=== PATIENT | male | born 1945 | race Caucasian/White ===

== ENCOUNTER 2017-07-05 16:26 | Emergency (ER) | payer OTHER ==
[2017-07-05 18:44] LABS: BASOPHILS 0.1 % (0-2); EOSINOPHILS 0.7 % (0-7); IMMATURE GRANULOCYTES 0.3 % (0-5); LYMPHOCYTES 28.2 % (15-50); MCH 30.8 pg (26.0-34.0); MCHC 33.3 g/dL (31.0-37.0); MCV 92.5 fL (80.0-100.0); MEAN PLATELET VOLUME 10.4 fL (7.4-10.4); MONOCYTES 7.6 % (2-11); NEUTROPHILS 63.1 % (40-80); PLATELET COUNT 177 10x3/uL (130-400); RBC 3.89 10x6/uL (4.20-6.10); RDW 15.2 % (11.5-14.5); WBC 6.7 10x3/uL (4.8-10.8)
[2017-07-05 18:59] LABS: ALBUMIN 4.2 g/dL (3.4-5.0); ANION GAP 20.1 mmol/L (8-16); BILIRUBIN - TOTAL 0.99 mg/dL (0.2-1.3); CALCIUM 9.1 mg/dL (8.5-10.1); CARBON DIOXIDE 16.8 mmol/L (21.0-32.0); CREATININE - SERUM 3.4 mg/dL (0.6-1.3); POTASSIUM - SERUM 5.9 mmol/L (3.5-5.1); PROTEIN - SERUM 7.7 g/dL (6.4-8.2)
== END 2017-07-05 23:03 | disposition short-term general hospital (02) ==
LOC: D.ER 16:26
PROVIDERS: Physician Assistant
DX: E87.5 Hyperkalemia (principal); I12.9 Hypertensive chronic kidney disease with stage 1 through stage 4 chronic kidney disease, or unspecified chronic kidney disease; N18.9 Chronic kidney disease, unspecified; Z87.09 Personal history of other diseases of the respiratory system; Z86.79 Personal history of other diseases of the circulatory system; R10.84 Generalized abdominal pain; Z95.0 Presence of cardiac pacemaker

== ENCOUNTER 2020-06-09 14:26 | Inpatient (IN) | payer OTHER ==
[~2020-06-09] VITALS: Ht 167.6 cm; Wt 99.8 kg
[2020-06-09] MEDS ORDERED: LISINOPRIL5 MG (15:11)
[2020-06-09] MEDS ORDERED: GOUT MED (15:12)
[2020-06-09] MEDS ORDERED: [UNRECOGNIZED DRUG - REMARK] (15:12)
[2020-06-09 15:59] LABS: BASOPHILS 0.1 % (0-2); EOSINOPHILS 0.4 % (0-7); HEMATOCRIT 33.7 % (42.0-54.0); IMMATURE GRANULOCYTES 0.1 % (0-5); LYMPHOCYTES 18.7 % (15-50); MCH 31.2 pg (26.0-34.0); MCHC 32.6 g/dL (31.0-37.0); MCV 95.5 fL (80.0-100.0); MEAN PLATELET VOLUME 11.4 fL (7.4-10.4); MONOCYTES 6.7 % (2-11); PLATELET COUNT 169 10x3/uL (130-400); RBC 3.53 10x6/uL (4.20-6.10); RDW 14.4 % (11.5-14.5); WBC 9.6 10x3/uL (4.8-10.8)
[2020-06-09 16:07] LABS: INR 1.17 (0.85-1.17); PROTIME 14.8 SECONDS (11.6-15.0)
[2020-06-09 16:08] LABS: APTT 35.2 SECONDS (22.8-39.4)
[2020-06-09 16:30] LABS: ALBUMIN 4.3 g/dL (3.4-5.0); ALKALINE PHOSPHATASE 105 U/L (30-120); BILIRUBIN - TOTAL 0.19 mg/dL (0.2-1.3); CHLORIDE - SERUM 102 mmol/L (98-107); CREATINE KINASE 478 UL (21-232); CREATININE - SERUM 8.9 mg/dL (0.6-1.3); PROTEIN - SERUM 7.3 g/dL (6.4-8.2); SODIUM 135 mmol/L (136-145); TROPONIN-I 0.029 ng/mL (0.000-0.060); eGFR NON AFRICAN AMERICAN 6 mL/min (90-120)
[2020-06-09 17:00] VITALS: BP 104/42
[2020-06-09 17:01] LABS: GLUCOSE 44 mg/dL (74-106)
[2020-06-09 17:02] LABS: ALT (SGPT) 15 U/L (10-68); CALC OSMOLALITY 331 mosm/kg (275-300); CALCIUM 5.9 mg/dL (8.5-10.1); POTASSIUM - SERUM 7.5 mmol/L (3.5-5.1); UREA NITROGEN 195 mg/dL (7-18)
[2020-06-09 17:23] LABS: BILIRUBIN NEGATIVE (NEGATIVE); KETONE NEGATIVE (NEGATIVE); NITRITE NEGATIVE (NEGATIVE); UROBILINOGEN NORMAL mg/dL (< 2)
--- NOTE | 2020-06-09 17:45 | NUR ---
PER Guanako CAIN., PATIENT TOO UNSTABLE FOR V/Q SCAN AT THIS TIME. WILL RE-ORDER IF NEEDED AND PATIENT BECOMES MORE STABLE.
[2020-06-09 18:00] VITALS: BP 108/75
--- NOTE | 2020-06-09 18:00 | NUR ---
1800 DR. LIMA AT BEDSIDE FOR DIALYSIS CATH PLACEMENT, CONSENTS SIGNED UNABLE TO OBTAIN IJ ACCESS. CATHETER PLACED RT FEMORAL, BIOPATCH PLACED, DRESSING APPLIED. PT TOLERATED FAIR.
[2020-06-09 19:00] VITALS: BP 124/61
[2020-06-09 20:00] VITALS: BP 112/56
[2020-06-09 21:00] VITALS: BP 172/81
--- NOTE | 2020-06-09 21:29 | NUR ---
DIALYSIS NURSE HERE TO DO DIALYSIS.
[2020-06-09 22:00] VITALS: BP 134/94
[2020-06-10] VITALS (10 sets, daily range): BP systolic 92–131; BP diastolic 50–65
[2020-06-10 07:57] LABS: BASOPHILS 0.2 % (0-2); EOSINOPHILS 0.3 % (0-7); HEMOGLOBIN 8.8 g/dL (13.5-17.5); IMMATURE GRANULOCYTES 0.3 % (0-5); LYMPHOCYTES 19.6 % (15-50); MCH 30.9 pg (26.0-34.0); MEAN PLATELET VOLUME 11.6 fL (7.4-10.4); MONOCYTES 10.3 % (2-11); NEUTROPHILS 69.3 % (40-80); PLATELET COUNT 170 10x3/uL (130-400); RBC 2.85 10x6/uL (4.20-6.10); RDW 14.2 % (11.5-14.5)
[2020-06-10 07:58] LABS: HEMATOCRIT 25.9 % (42.0-54.0); MCV 90.9 fL (80.0-100.0); WBC 6.2 10x3/uL (4.8-10.8)
[2020-06-10 08:03] LABS: INR 1.15 (0.85-1.17); PROTIME 14.6 SECONDS (11.6-15.0)
[2020-06-10 08:21] LABS: ALBUMIN 3.5 g/dL (3.4-5.0); BILIRUBIN - TOTAL 0.28 mg/dL (0.2-1.3); PHOSPHOROUS 6.2 mg/dL (2.5-4.9); PROTEIN - SERUM 6.5 g/dL (6.4-8.2)
[2020-06-10 08:29] LABS: ANION GAP 22.4 mmol/L (8-16); CARBON DIOXIDE 17.1 mmol/L (21.0-32.0); CREATININE - SERUM 4.8 mg/dL (0.6-1.3); POTASSIUM - SERUM 3.5 mmol/L (3.5-5.1)
[2020-06-10 08:35] LABS: CALCIUM 6.2 mg/dL (8.5-10.1); MAGNESIUM - SERUM 0.9 mg/dL (1.8-2.4)
[2020-06-10 08:41] LABS: TROPONIN-I 0.033 ng/mL (0.000-0.060)
--- NOTE | 2020-06-10 09:26 | NUR ---
PATIENT RECEIVED FROM [employer] CEMENT SHEET SUPERVISOR. PATIENT WITH RIGHT FEMORAL TRIALYSIS CATH INTACT. FINGERSTICK BLOOD SUGAR 179 AND INSULIN GIVEN ORDERED. D5W AT 100ML/HR IN RIGHT FOREARM.
--- NOTE | 2020-06-10 11:18 | NUR ---
MENDOZA AVINA AT BEDSIDE. AT BEDSIDE, STATES DOES NOT WANT PT TRANSFERRED TO [facility], "I WILL TAKE HIM HOME FIRST" PATIENT RESTING QUIETLY WITHOUT C/O VOICED. NRIGHT AC IV SITE WITH REDNESS, IV REMOVED WITH CATH INTACT, 20 GAUGE INSERTED IN RIGHT HAND X1 ATTEMPT
[2020-06-11] VITALS (7 sets, daily range): BP systolic 97–175; BP diastolic 45–67; Ht 167.6 cm; Wt 99.8 kg
[2020-06-11] MEDS ORDERED: IPRAT-ALBUT 0.5-3 ML UPD (00:04)
[2020-06-11] MEDS ORDERED: COMBIVENT RESPIM4 GM INH (00:05)
[2020-06-11] MEDS ORDERED: ALBUTEROL SULF8.5 GM INH (00:06)
[2020-06-11] MEDS ORDERED: SYMBICORT 16010.2 GM INH (00:07)
[2020-06-11] MEDS ORDERED: LIPITOR10 MG PO (00:17)
[2020-06-11] MEDS ORDERED: BUMEX2 MG PO (00:18)
[2020-06-11] MEDS ORDERED: OMEPRAZOLE20 M1 PO (00:19)
[2020-06-11] MEDS ORDERED: COREG25 MG PO (00:19)
[2020-06-11] MEDS ORDERED: GAS-X125 M1 PO (00:21)
[2020-06-11] MEDS ORDERED: ASPIRIN81 MG PO (00:22)
[2020-06-11] MEDS ORDERED: ZANAFLEX2 M1 PO (00:22)
[2020-06-11 05:55] LABS: BASOPHILS 0.2 % (0-2); EOSINOPHILS 0.9 % (0-7); HEMATOCRIT 27.4 % (42.0-54.0); HEMOGLOBIN 9.1 g/dL (13.5-17.5); LYMPHOCYTES 23.8 % (15-50); MCH 30.2 pg (26.0-34.0); MCHC 33.2 g/dL (31.0-37.0); MEAN PLATELET VOLUME 11.5 fL (7.4-10.4); MONOCYTES 12.8 % (2-11); NEUTROPHILS 62.3 % (40-80); RBC 3.01 10x6/uL (4.20-6.10); RDW 14.1 % (11.5-14.5); WBC 5.6 10x3/uL (4.8-10.8)
[2020-06-11 06:02] LABS: PLATELET COUNT 135 10x3/uL (130-400)
[2020-06-11 06:04] LABS: INR 1.15 (0.85-1.17); PROTIME 14.6 SECONDS (11.6-15.0)
[2020-06-11 06:24] LABS: PHOSPHOROUS 5.3 mg/dL (2.5-4.9); POTASSIUM - SERUM 3.3 mmol/L (3.5-5.1)
[2020-06-11 06:30] LABS: ANION GAP 16.3 mmol/L (8-16); CREATININE - SERUM 2.9 mg/dL (0.6-1.3)
[2020-06-11 06:32] LABS: CALCIUM 6.4 mg/dL (8.5-10.1)
--- NOTE | 2020-06-11 08:27 | MORECARE ---
CASE MANAGEMENT DISCHARGE SUMMARY PATIENT: ELIANA RUFF UNIT: [id number] ADM DATE: 06/09/20 AGE: 75 : 45 SEX: M ROOM/BED: D.0 AUTHOR: TOREY SPICER PHYSICIAN: REFERRING PHYSICIAN: LAY ROSARIO MD DATE OF SERVICE: 06/11/20 Discharge Plan Patient Name: [facility]INAA RUFF [facility] [facility] 1945 Planned Disposition: Anticipated Discharge Date: Discharge Date: Expected LOS: Initial Reviewer: [email or web address] Initial Review Date: 06/11/2020 Generated: 06/11/20 9:26 am DCP- Discharge Planning Updated by [email or web address]: Glo Lawrence on 06/10/20 3:[address] 1600 CM called [place] expeditor at [phone] and spoke with Natalia about transfer status. Natalia stated she was too busy to provide that information at this moment. Stated she will call CM back in 15 min. CM will await call back. Glo WANG,RN,CM DCP- Discharge Planning Updated by [email or web address]: Glo Lawrence on 06/10/20 3:[address] 0850 [facility] at [phone] and spoke with Manuela about [facility] the [facility] the [facility]. Kamila stated she will send to the [facility] to review. Glo WANG,RN,CM Patient Name: ELIANA RUFF Page [id number] at 0827 All edits/amendments must be made on the electronic document DICTATION DATE: 06/11/20825 BED AND BREAKFAST INNKEEPER: PAVAN 06/11/20825 RPT#: [id number] DC DATE: STATUS: ADM IN [facility] [address] [place] [address] END OF REPORT
--- NOTE | 2020-06-11 14:20 | NUR ---
PT CURRENTLY LYING SEMI FOWLERS. CALL LIGHT W/I REACH. RESTING WITH EYES CLOSED AT THIS TIME. FALL PRECAUTIONS IN PLACE. PREVIOUS PIV'S INFILTRATED. REMOVED ALL THREE WITH ALL THREE CATHETER TIPS FULLY INTACT. ATTEMPTED TO INITIATE NEW PERIPHERAL ACCESS BUT WAS UNSUCCESSFUL R/T VALVULAR ISSUES. MAGNESIUM INFUSIONS COMPLETE. NO S/S OF DISTRESS NOTED. ESCALANTE CATHETER IN PLACE. WAS AT BEDSIDE APPROX 30 MIN THIS AM BUT LEFT. PT DENIES ANY NEEDS AT THIS TIME. WILL CTM.
--- NOTE | 2020-06-11 15:41 | NUR ---
DURING THE TIME OF THE 'S VISIT, INSTRUCTOR AND 3 NURSING STUDENTS IN THE ROOM AT THE TIME OF ATTEMPTING A NEW PIV. THE NOR THE PATIENT DID NOT VOISE ANY CONCERNS OR QUESTIONS. PT AT THIS TIME DENIES ANY NEEDS OR DOES NOT HAVE ANY CONCERNS OR QUESTIONS. NEW CVL DRESSING PLACE TO RIGHT GROIN TRIALYSIS CATHETER PER PROTOCOL. WILL CTM.
--- NOTE | 2020-06-11 19:26 | NUR ---
RECIEVED UP IN BED WITH EYES OPEN AND TV ON. ALERT AND ORIENTED X4. UP AD KAREN TO B/R. TRIALYSIS TO LEFT GROIN WITH PLASMOLYTE INFUSING AT 75CC/HR. DENIES ANY NEEDS.
[2020-06-12] VITALS: BP 108/58
[2020-06-12 04:00] VITALS: BP 128/63
[2020-06-12 06:07] LABS: BASOPHILS 0.1 % (0-2); EOSINOPHILS 1.1 % (0-7); HEMATOCRIT 27.4 % (42.0-54.0); HEMOGLOBIN 9.2 g/dL (13.5-17.5); IMMATURE GRANULOCYTES 0.1 % (0-5); LYMPHOCYTES 17.5 % (15-50); MCH 30.9 pg (26.0-34.0); MCHC 33.6 g/dL (31.0-37.0); MCV 91.9 fL (80.0-100.0); MONOCYTES 10.5 % (2-11); NEUTROPHILS 70.7 % (40-80); PLATELET COUNT 140 10x3/uL (130-400); RBC 2.98 10x6/uL (4.20-6.10); RDW 13.9 % (11.5-14.5); WBC 7.4 10x3/uL (4.8-10.8)
[2020-06-12 06:23] LABS: ANION GAP 14.2 mmol/L (8-16); CARBON DIOXIDE 27.1 mmol/L (21.0-32.0); POTASSIUM - SERUM 3.3 mmol/L (3.5-5.1)
[2020-06-12 06:23] LABS: INR 1.11 (0.85-1.17); PROTIME 14.3 SECONDS (11.6-15.0)
[2020-06-12 06:31] LABS: CREATININE - SERUM 1.9 mg/dL (0.6-1.3); MAGNESIUM - SERUM 1.9 mg/dL (1.8-2.4); PHOSPHOROUS 3.3 mg/dL (2.5-4.9)
[2020-06-12 06:32] LABS: CALCIUM 6.5 mg/dL (8.5-10.1)
[2020-06-12 07:42] VITALS: BP 125/68
--- NOTE | 2020-06-12 10:45 | NUR ---
TRIALYSIS CATH REMOVED REMOVED PER DRS ORDERED, PRESSER HELD FOR 10 MINUTES. DRESSING APPLED, NO BLEEDING NOTED.
--- NOTE | 2020-06-12 11:00 | NUR ---
CALLED TO ROOM PER AND GOWN WITH LARGE AMOUNT OF BLOOD ON IT AND MASSIVE BLOOD TO BED AROUND GROIN WITH CLOTS NOTED, PRESSURE APPLIED WITH 4X4S FOR APPROX 15-20 MINUTES AND BLEEDING STOPPED. PRESSURE DRESSING APPLIED.
--- NOTE | 2020-06-12 12:00 | NUR ---
NO BLEEDING NOTED THROUGH DRESSING.
[2020-06-12 14:21] VITALS: BP 103/58
--- NOTE | 2020-06-12 16:08 | NUR ---
patient unable to urinate since small removed this morning, bladder scan showing greater than 500. order received to in and out cath. 550 out.
[2020-06-12 16:16] VITALS: BP 116/74
--- NOTE | 2020-06-12 19:15 | NUR ---
RECIEVED UP IN BED WITH EYES OPEN AND TV ON. ALERT AND ORIETNED X4. UP AD KAREN TO B/R. IV TO LT FA SL. DENIES ANY NEEDS AT THIS TIME.
[2020-06-12 20:00] VITALS: BP 107/48
[2020-06-13 04:00] VITALS: BP 142/65
[2020-06-13 05:45] LABS: BASOPHILS 0.2 % (0-2); EOSINOPHILS 2.1 % (0-7); HEMATOCRIT 25.1 % (42.0-54.0); HEMOGLOBIN 8.2 g/dL (13.5-17.5); IMMATURE GRANULOCYTES 0.3 % (0-5); LYMPHOCYTES 26.6 % (15-50); MCH 30.4 pg (26.0-34.0); MCHC 32.7 g/dL (31.0-37.0); MEAN PLATELET VOLUME 11.2 fL (7.4-10.4); MONOCYTES 10.6 % (2-11); NEUTROPHILS 60.2 % (40-80); PLATELET COUNT 146 10x3/uL (130-400); WBC 5.8 10x3/uL (4.8-10.8)
[2020-06-13 06:19] LABS: INR 1.05 (0.85-1.17); PROTIME 13.6 SECONDS (11.6-15.0)
[2020-06-13 06:21] LABS: ANION GAP 16.2 mmol/L (8-16); CARBON DIOXIDE 25.2 mmol/L (21.0-32.0); CREATININE - SERUM 1.6 mg/dL (0.6-1.3); PHOSPHOROUS 3.2 mg/dL (2.5-4.9); POTASSIUM - SERUM 3.4 mmol/L (3.5-5.1)
[2020-06-13 06:24] LABS: MAGNESIUM - SERUM 1.4 mg/dL (1.8-2.4)
[2020-06-13 06:25] LABS: CALCIUM 6.4 mg/dL (8.5-10.1)
[2020-06-13] MEDS ORDERED: OMNICEF300 MG PO (08:11)
--- NOTE | 2020-06-13 11:23 | NUR ---
SALINE LOCK REMOVED, DRESSED CHANGED TO LEFT GROIN AND DISCHARGE PAPERS DISCUSSED WITH PATIENT AND . TO CAR VIA WHEELCHAIR.
--- NOTE | 2020-06-13 16:41 | MORECARE ---
CASE MANAGEMENT DISCHARGE SUMMARY PATIENT: ELIANA REINA UNIT: [id number] ADM DATE: 06/09/20 AGE: 75 : 45 SEX: M ROOM/BED: D.2110 AUTHOR: TOREY SPICER PHYSICIAN: REFERRING PHYSICIAN: LAY ROSARIO MD DATE OF SERVICE: 06/13/20 Discharge Plan Patient Name: ELIANA REINA Facility: [facility]:[place] : 1945 Planned Disposition: Anticipated Discharge Date: Discharge Date: 06/13/2020 Expected LOS: Initial Reviewer: [email or web address] Initial Review Date: 06/11/2020 Generated: 06/13/20 5:40 pm Comments DCP- Discharge Planning Updated by [email or web address]: Colette Lee on 06/13/20 3:[address] CM contacted patient's , Rosita Reina ([phone]) regarding Dc needs. Patient and spouse are in agreement. PCP: KUSUM DIAZ. Pharmacy: [facility]. Patient/ denies any DC needs/plans. Encouraged patient/spouse to return to the [facility] office or ER if patient worsens. CM verified that the spouse has addresses and phone numbers for referrals. DCP- Discharge Planning Updated by [email or web address]: Glo Lawrence on 06/10/20 3:[address] 1600 CM called [facility] at [phone] and spoke with Natalia about transfer status. Natalia stated she was too busy to provide that information at this moment. Stated she will call CM back in 15 min. CM will await call back. Glo WANG,RN,CM DCP- Discharge Planning Updated by [email or web address]: Glo Lawrence on 06/10/20 3:[address] 0850 CM called the [facility] expeditor at [phone] and spoke with Manuela about transferring the patient to the [facility]. Kamila stated she will send to the [facility] to review. Glo WANG,RN,CM Last DP export: 06/11/20 7:27 a Patient Name: ELIANA REINA Page [id number] at 1641 All edits/amendments must be made on the electronic document DICTATION DATE: 06/13/201640 COMMUNICATIONS TECHNICIAN: PAVAN 06/13/201640 RPT#: [id number] DC DATE:06/13/20 STATUS: DIS IN [facility] [address] [place] [address] END OF REPORT
--- NOTE | 2020-06-16 09:14 | MORECARE ---
CASE MANAGEMENT DISCHARGE SUMMARY PATIENT: ELIANA REINA UNIT: [id number] ADM DATE: 06/09/20 AGE: 75 : 45 SEX: M ROOM/BED: D.4310 AUTHOR: TOREY SPICER PHYSICIAN: REFERRING PHYSICIAN: LAY ROSARIO MD DATE OF SERVICE: 06/16/20 Discharge Plan Patient Name: ELIANA REINA Facility: [facility]:[place] : 1945 Planned Disposition: Anticipated Discharge Date: Discharge Date: 06/13/2020 Expected LOS: 0 Initial Reviewer: [email or web address] Initial Review Date: 06/11/2020 Generated: 06/16/20 10:14 am Comments DCP- Discharge Planning Updated by [email or web address]: Colette Lee on 06/13/20 3:[address] CM contacted patient's , Rosita Reina ([phone]) regarding Dc needs. Patient and spouse are in agreement. PCP: KUSUM DIAZ. Pharmacy: [facility]. Patient/ denies any DC needs/plans. Encouraged patient/spouse to return to the [facility] office or ER if patient worsens. CM verified that the spouse has addresses and phone numbers for referrals. DCP- Discharge Planning Updated by [email or web address]: Glo Lawrence on 06/10/20 3:[address] 1600 CM called [facility] at [phone] and spoke with Natalia about transfer status. Natalia stated she was too busy to provide that information at this moment. Stated she will call CM back in 15 min. CM will await call back. Glo WANG,RN,CM DCP- Discharge Planning Updated by [email or web address]: Glo Lawrence on 06/10/20 3:[address] 0850 CM called the [facility] expeditor at [phone] and spoke with Manuela about transferring the patient to the [facility]. Kamila stated she will send to the [facility] to review. Glo WANG,RN,CM Last DP export: 06/13/20 3:41 p Patient Name: ELIANA REINA Page [id number] at 0914 All edits/amendments must be made on the electronic document DICTATION DATE: 06/16/20913 CITY PLANNING ENGINEER: PAVAN 06/16/20913 RPT#: [id number] DC DATE:06/13/20 STATUS: DIS IN [facility] [address] [place] [address] END OF REPORT
--- NOTE | 2020-06-17 04:05 | NUR ---
IV INFUSION TIMES: CALCIUM GLUCONATE: 06/09/20 1702 TO 1802 BICARB DRIP: 06/09 1706 TO 06/10 0726
== END 2020-06-13 11:24 | disposition home or self-care (01) | DRG 682 ==
LOC: D.ER 14:26 → D.M2 18:48 → D.EDHOLD 18:48 → D.M2 06-10 17:18
PROVIDERS: Family Medicine; Internal Medicine Nephrology; ADMIT Family Medicine Adult Medicine; ATTEND Family Medicine Adult Medicine
PROC: 06HM33Z Insertion of Infusion Device into Right Femoral Vein, Percutaneous Approach (ICD-10-PCS; principal; 2020-06-09)
PROC: B54BZZA Ultrasonography of Right Lower Extremity Veins, Guidance (ICD-10-PCS; 2020-06-09)
DX: N17.9 Acute kidney failure, unspecified (principal); J18.9 Pneumonia, unspecified organism; G93.41 Metabolic encephalopathy; K85.90 Acute pancreatitis without necrosis or infection, unspecified; J98.11 Atelectasis; E87.2 Acidosis; E87.5 Hyperkalemia; I25.10 Atherosclerotic heart disease of native coronary artery without angina pectoris; I10 Essential (primary) hypertension; J44.9 Chronic obstructive pulmonary disease, unspecified; E66.9 Obesity, unspecified; Z68.35 Body mass index [BMI] 35.0-35.9, adult; D64.9 Anemia, unspecified